=== PATIENT | female | born 1975 | race Caucasian/White ===

== ENCOUNTER 2018-03-14 18:33 | Emergency (ER) | payer OTHER ==
[~2018-03-14] VITALS: Ht 165.1 cm; Wt 102.6 kg
[~2018-03-14 18:33] MED LIST: ULTRAM50 MG PO
[2018-03-14] MEDS ORDERED: MUCINEX1200 MG PO (19:51)
[2018-03-14 20:26] VITALS: BP 136/66
== END 2018-03-14 20:26 | disposition home or self-care (01) ==
LOC: EME 18:33
PROVIDERS: Nurse Practitioner Family
DX: J06.9 Acute upper respiratory infection, unspecified (principal); J45.909 Unspecified asthma, uncomplicated; F31.9 Bipolar disorder, unspecified
CPT/HCPCS: 81025; 99281; 99284